=== PATIENT | male | born 1985 | race Caucasian/White ===

== ENCOUNTER 2023-08-08 17:44 | Emergency (ER) | payer MEDICAID ==
[~2023-08-08] VITALS: Ht 175.3 cm; Wt 96.6 kg
[2023-08-08 18:16] VITALS: BP_SYST 160; PULSE 91; RESP 19; TEMP 98; O2SAT 98
[2023-08-08] MEDS ORDERED: HYDR-3917 PO (19:20)
[2023-08-08] MEDS ORDERED: IBUP-1971 PO (19:20)
== END 2023-08-08 19:34 | disposition home or self-care (01) ==
LOC: SED 17:44
DX: M26.601 Right temporomandibular joint disorder, unspecified (principal)
CPT/HCPCS: 70110; 99283